=== PATIENT | female | born 2000 | race Caucasian/White ===

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

== ENCOUNTER 2022-02-01 09:11 | Emergency (ER) | payer OTHER ==
[2022-02-01 10:48] LABS: Urine Blood 3+ (Negative); Urine Glucose Negative (Negative); Urine Protein 1+ (Negative); Urine Specific Gravity >=1.030 (1.005-1.030)
[2022-02-01 11:01] LABS: Urine Bacteria >50 /HPF (<20); Urine Mucus 1+ /HPF (NONE SEEN); Urine RBC 20-50 /HPF (NONE SEEN)
[2022-02-01 11:52] LABS: Albumin 3.7 g/dL (3.4-5.0); Bilirubin Total 0.2 mg/dL (0.2-1.0); Protein, Total 7.6 g/dL (6.4-8.2)
[2022-02-01 11:53] LABS: Potassium 3.8 mmol/L (3.5-5.1)
--- NOTE | 2022-02-01 13:01 | RAD REPORT ---
EXAM DESCRIPTION: CT - Abdomen Pelvis Wo Contrast - 02/01/2022 12:39 pm CLINICAL HISTORY: Abdominal pain. RLQ abdominal pain COMPARISON: Abdomen Pelvis W Contrast dated 10/04/2019 TECHNIQUE: CT imaging of the abdomen and pelvis was performed without contrast. Solid organ, bowel a nd vascular assessment is limited due to lack of IV and oral contrast. All CT scans are performed using dose optimization technique as appropriate and may include automated exposure control or mA/KV adjustment according to patient size. FINDINGS: The lower lung bell are clear. The liver is mildly fatty. Spleen, pancreas, adrenal glands and kidneys are within normal limits for a limited non-contrast examination. No bowel obstruction, free air, free fluid or abscess. Moderate stool is present throughout the colon . The appendix is normal. The osseous structures are within normal limits. IMPRESSION: No acute intra-abdominal or pelvic findings. A limited non-contrast examination was performed as detailed.
[2022-02-01 13:29] LABS: Absolute Lymphocytes (CBC) 2.1 K/uL (0.7-4.9); Hematocrit 38.9 % (36.0-45.0); Lymphocytes % 42.3 % (15.3-44.8); RBC Red Blood Cell Count 4.37 M/uL (3.86-4.86)
--- NOTE | 2022-02-01 14:00 | ER ---
Nurse's Notes [facility] Name: Meredith Shepherd Age: 21 yrs Sex: Female : 2000 Arrival Date: 02/01/2022 Time: 09:13 Bed Treatment Private MD: Calderon Bustos Diagnosis: Lower abdominal pain, unspecified;UTI/ Urinary tract infection, site not specified Presentation: 02/01 10:03 Chief complaint: Patient states: RLQ abdominal pain since last night. Denies N/V/D, jl7 denies urinary symptoms. Coronavirus screen: At this time, the client does not indicate any symptoms associated with coronavirus-19. Ebola Screen: No symptoms or risks identified at this time. Initial Sepsis Screen: Does the patient meet any 2 criteria? No. Patient's initial sepsis screen is negative. Does the patient have a suspected source of infection? No. Patient's initial sepsis screen is negative. Risk Assessment: Do you want to hurt yourself or someone else? Patient reports no desire to harm self or others. Onset of symptoms was January 31, 2022. 10:03 Method Of Arrival: Ambulatory jl7 10:03 Acuity: ADELFO 3 jl7 Triage Assessment: 10:04 General: Appears in no apparent distress. uncomfortable, Behavior is calm, cooperative, jl7 appropriate for age. Pain: Complains of pain in right lower quadrant Pain does not radiate. Pain currently is 4 out of 10 on a pain scale. GI: Patient currently denies diarrhea, nausea, vomiting. 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 - Social history:: Smoking status: Patient denies any tobacco usage or history of. Vital Signs: 10:03 BP 137 / 84; Pulse 88; Resp 17; Temp 97.7; Pulse Ox 98% ; Weight 83.91 kg; Height 5 ft. jl7 3 in. (160.02 cm); Pain 4/10; 10:03 Body Mass Index 32.77 (83.91 kg, 160.02 cm) jl7 ED Course: 09:13 Patient arrived in ED. as 09:13 Calderon Bustos DO is Private Physician. as 09:16 [facility]ines [facility] 09:16 Hector Celeste MD is Attending Physician. jmm 10:04 Triage completed. jl7 10:04 Arm band placed on right wrist. jl7 11:01 Peggy Hopkins, RN is Primary Nurse. iw 12:15 Missed attempt(s): 22 gauge in left wrist. Bleeding controlled, band aid applied, jl7 catheter tip intact. 12:20 Missed attempt(s): 22 gauge in left forearm. Bleeding controlled, band aid applied, jl7 catheter tip intact. 12:30 Missed attempt(s): 22 gauge in right forearm. Bleeding controlled, band aid applied, jl7 catheter tip intact. 12:39 Abdomen In Process Unspecified. EDMS Administered Medications: 12:52 Not Given (Physician Discretion): Zofran (Ondansetron) 4 mg IVP once; over 2 minutes iw Outcome: 13:59 Discharge ordered by . jmm 14:33 Patient left the ED. iw Signatures: Dispatcher [employer] EDMS Romario Vines PA PA Diane Núñez as Peggy Hopkins, RN RN iw Franklin Tejeda RN RN jl7
--- NOTE | 2022-02-01 14:00 | EDPHYS ---
Physician Documentation [facility] Name: Meredith Shepherd Age: 21 yrs Sex: Female : 2000 Arrival Date: 02/01/2022 Time: 09:13 Bed Treatment Private MD: Akash Pending Sale To [facility] ED Physician Hector Celeste HPI: 02/01 10:05 This 21 yrs old Female presents to ER via Ambulatory with complaints of Abdominal Pain. jmm 10:05 The patient presents with abdominal pain. Onset: The symptoms/episode began/occurred jmm gradually, 3 day(s) ago. The symptoms do not radiate. Associated signs and symptoms: Pertinent positives: flatus, Pertinent negatives: nausea and vomiting, diarrhea. The symptoms are described as achy. Modifying factors: The symptoms are alleviated by nothing, the symptoms are aggravated by nothing. Patient complains of right lower abdominal pain beginning this past Monday. Denies fever. Symptoms were worse last night. Decreased appetite today. . 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 - Social history:: Smoking status: Patient denies any tobacco usage or history of. ROS: 10:05 Constitutional: Negative for fever, chills, and weight loss, Cardiovascular: Negative jmm for chest pain, palpitations, and edema, Respiratory: Negative for shortness of breath, cough, wheezing, and pleuritic chest pain. 10:05 Abdomen/GI: Positive for abdominal pain. 10:05 All other systems are negative. Exam: 10:05 Constitutional: This is a well developed, well nourished patient who is awake, alert, jmm and in no acute distress. Head/Face: atraumatic. Eyes: EOMI, no conjunctival erythema appreciated ENT: Moist Mucus Membranes Neck: Trachea midline, Supple Chest/axilla: Normal chest wall appearance and motion. Cardiovascular: Regular rate and rhythm. No edema appreciated Respiratory: Normal respirations, no respiratory distress appreciated 10:05 Back: Normal ROM Skin: General appearance color normal MS/ Extremity: Moves all extremities, no obvious deformities appreciated, no edema noted to the lower extremities Neuro: Awake and alert Psych: Behavior is normal, Mood is normal, Patient is cooperative and pleasant 10:05 Abdomen/GI: Inspection: abdomen appears normal, Bowel sounds: normal, Palpation: soft, moderate abdominal tenderness, in the right lower quadrant. Vital Signs: 10:03 BP 137 / 84; Pulse 88; Resp 17; Temp 97.7; Pulse Ox 98% ; Weight 83.91 kg; Height 5 ft. jl7 3 in. (160.02 cm); Pain 4/10; 10:03 Body Mass Index 32.77 (83.91 kg, 160.02 cm) 7 MDM: 10:01 Patient medically screened. [facility] 13:58 Data reviewed: vital signs, nurses notes. Counseling: I had a detailed discussion with duc the patient and/or guardian regarding: the historical points, exam findings, and any diagnostic results supporting the discharge/admit diagnosis, lab results, radiology results, the need for outpatient follow up, to return to the emergency department if symptoms worsen or persist or if there are any questions or concerns that arise at home. ED course: Imaging studies are negative. Patient advised to follow up with pcp and otherwise given strict return precautions patient understood and agrees with the plan of care. . 02/01 10:02 Order name: CBC with Diff; Complete Time: 13:37 [facility] 02/01 10:02 Order name: CMP; Complete Time: 12:11 [facility] 02/01 10:02 Order name: Lipase; Complete Time: 12:11 [facility] 02/01 10:48 Order name: Urine Dipstick-Ancillary; Complete Time: 10:50 [facility] 02/01 10:50 Order name: Urine Microscopic Only; Complete Time: 11:04 [facility] 02/01 10:02 Order name: Labs collected and sent; Complete Time: 11:36 [facility] 02/01 10:02 Order name: Urine Dipstick-Ancillary (obtain specimen); Complete Time: 11:36 [facility] 02/01 10:02 Order name: Urine Test (obtain specimen); Complete Time: 11:36 [facility] 02/01 11:04 Order name: Urine Culture [facility] 02/01 12:38 Order name: Abdomen ; Complete Time: 13:01 EDMS 02/01 11:48 Order name: Labs - recollect needed: recollect lavender top; Complete Time: 13:12 bd Administered Medications: 12:52 Not Given (Physician Discretion): Zofran (Ondansetron) 4 mg IVP once; over 2 minutes iw Disposition: 14:58 Co-signature as Attending Physician, Hector Celeste MD I agree with the assessment and kdr plan of care. Disposition Summary: 02/01/22 13:59 Discharge Ordered Location: Home [facility] Condition: Stable jmm Diagnosis - Lower abdominal pain, unspecified jmm - UTI/ Urinary tract infection, site not specified jm Followup: jm - With: Private Physician - When: 2 - 3 days - Reason: Recheck today's complaints, Continuance of care, Re-evaluation by your physician Discharge Instructions: - Discharge Summary Sheet jmm - Urinary Tract Infection, Adult jm Forms: - Medication Reconciliation Form jm - Thank You Letter jm - Antibiotic Education jm - Prescription Opioid Use jm - Work release form iw Prescriptions: - Cephalexin 500 mg Oral Capsule - take 1 capsule by ORAL route every 8 hours for 10 days; 30 capsule; Refills: 0, jm Product Selection Permitted Signatures: Dispatcher [employer] EDIA Cathy Swain Kevin, MD MD kdr Romario Vines PA PA [facility] Franklin Tejeda RN RN jl7 Peggy Hopkins RN iw Corrections: (The following items were deleted from the chart) 12:38 10:05 Abdomen Pelvis W Con+CT.RAD.BRZ ordered. EDIA EDIA 13:47 10:02 IV Saline Lock ordered. [facility] iw
[2022-02-01 16:33] VITALS: BP 137/84; TEMP 97.7; O2SAT 98
== END 2022-02-01 14:33 | disposition home or self-care (01) ==
LOC: ER 09:11
DX: N39.0 Urinary tract infection, site not specified (principal); F90.9 Attention-deficit hyperactivity disorder, unspecified type; F41.9 Anxiety disorder, unspecified; Z88.3 Allergy status to other anti-infective agents
CPT/HCPCS: 36415; 74176; 80053; 81003; 81015; 83690; 85025; 87086; 87088; 99282